=== PATIENT | male | born 1955 | race Caucasian/White ===

== ENCOUNTER 2021-04-27 14:45 | Emergency (ER) | payer OTHER ==
[~2021-04-27] VITALS: Ht 182.9 cm; Wt 62.6 kg
--- NOTE | 2021-04-27 14:45 | NUR ---
Dr Torres at the bedside for MSE.
[2021-04-27] MEDS ORDERED: IV NORMAL SALINE 1000 ML BAG IV ONE (15:00)
--- NOTE | 2021-04-27 15:00 | NUR ---
No information available about pt's current home medications. Pt and EMS were unable to provide information.
[2021-04-27 15:10] LABS: HEMATOCRIT 47.7 % (36.7-47.1); MEAN CORPUSCULAR HEMOGLOBIN 32.7 uug (23.8-33.4); MEAN CORPUSCULAR VOLUME 96.7 fL (73.0-96.2); PLATELET COUNT (AUTO) 316 K/uL (152-348)
[2021-04-27 15:14] LABS: CREATININE 0.8 mg/dL (0.6-1.3); POTASSIUM 3.9 mmol/L (3.5-5.1)
[2021-04-27 15:20] LABS: BILIRUBIN,DIRECT 0.2 mg/dL (0.0-0.2); TOTAL PROTEIN, SERUM 8.4 g/dL (6.4-8.2)
[2021-04-27 15:43] LABS: THYROID STIMULATING HORMONE 0.899 mIU/mL (0.358-3.740)
--- NOTE | 2021-04-27 15:58 | NUR ---
Dr Torres spoke to Dr Arzola for transfer to Neuro center.
[2021-04-27] MEDS ORDERED: levETIRAcetam IV 1,000 MG in IV DEXTROSE 5% 100 ML IV ONE (16:30)
[2021-04-27] MEDS ORDERED: DEXAMETHASONE SOD PHOSPHATE 4 MG INJ IV ONE (16:30)
[2021-04-27] MEDS ORDERED: DEXAMETHASONE SOD PHOSPHATE 10 MG INJ ONE (16:33)
[2021-04-27] MEDS ORDERED: levETIRAcetam 500 MG/5 ML VIAL IV ONE (16:33)
--- NOTE | 2021-04-27 17:23 | NUR ---
Pt's clinical faxed to [facility] rep, Hina @ [phone].
--- NOTE | 2021-04-27 18:06 | NUR ---
Patient is resting comfortably in bed with eyes closed, NAD noted.
--- NOTE | 2021-04-27 18:16 | NUR ---
Placed another call to Preston Ruosseau new douglas@ [phone], No new info available. Awaiting for bed assigment.
--- NOTE | 2021-04-27 19:05 | NUR ---
RECEIVED REPORT FROM SHIKHA. PT NOTED TO BE IN BED, NO SOB OR LABORED BREATHING. AFEBRILE. DENIES ANY PAIN/DISCOMFORT. A/O X3
--- NOTE | 2021-04-27 19:46 | NUR ---
ASSISTED PT TO USE URINAL
--- NOTE | 2021-04-27 20:42 | NUR ---
RICA FROM [facility] CALLED BACK WITH TRANSPORT ETA OF 2300 WITH ROCHELLE.
--- NOTE | 2021-04-27 20:52 | NUR ---
GAVE REPORT TO PADMA NURSE AT [place].
--- NOTE | 2021-04-27 21:56 | NUR ---
PT NOTED TO BE SOILED. PROPER PERINEAL CARE RENDERED. NOW NOTED TO BE CLEAN DRY AND COMFORTABLE. DENIES ANY PAIN/DISCOMFORT.
--- NOTE | 2021-04-27 23:24 | NUR ---
CALLED JO ANN FOR UPDATE ON ETA, NEW ETA IS 0000.
--- NOTE | 2021-04-28 02:09 | NUR ---
[facility] [address] AT BEDSIDE.
--- NOTE | 2021-04-28 02:18 | NUR ---
Patient Tranfers to outside Facility Physician: DR. COYLE AND DR. HERNÁNDEZ Location: [facility] NO CHANGES IN LOC. DENIES ANY PAIN/DISCOMFORT UPON DISCHARGE. NO SOB OR LABORED BREATHING. AFEBRILE. DENIES ANY CP/PRESSURE UPON TRANSFER.
== END 2021-04-28 02:20 | disposition short-term general hospital (02) ==
LOC: ER 14:49
DX: G93.9 Disorder of brain, unspecified (principal); G93.6 Cerebral edema; C44.722 Squamous cell carcinoma of skin of right lower limb, including hip; Z89.611 Acquired absence of right leg above knee; Z20.822 Contact with and (suspected) exposure to COVID-19
CPT/HCPCS: 36415; 70450; 71045; 80048; 80076; 83605; 84443; 84484; 85025; 87040 ×2; 87426; 93005; 96361; 96374; 96375; 99291; J1100; J1953; 70030-TC; A4663; J3490; J7030

== ENCOUNTER 2021-08-20 01:46 | Emergency (ER) | payer OTHER ==
[~2021-08-20] VITALS: Ht 172.7 cm; Wt 68.0 kg
[~2021-08-20 01:46] MED LIST: ATOR40TA PO; Lactose-Free Food/Fiber PO; MIRT-93 PO; ONDA4TAB5 PO; RIVA10TA PO; TRAZ-182 PO
--- NOTE | 2021-08-20 01:55 | NUR ---
Dr. Torres at bedside for MSE.
--- NOTE | 2021-08-20 02:29 | NUR ---
Pt out of ER for CT.
--- NOTE | 2021-08-20 02:51 | NUR ---
Pt back to ER from CT.
[2021-08-20 06:42] LABS: HEMATOCRIT 35.8 % (36.7-47.1); MEAN CORPUSCULAR HEMOGLOBIN 28.3 uug (23.8-33.4); MEAN CORPUSCULAR VOLUME 84.6 fL (73.0-96.2); PLATELET COUNT (AUTO) 463 K/uL (152-348)
[2021-08-20 07:04] LABS: BILIRUBIN,TOTAL 0.4 mg/dL (0.2-1.0); CREATININE 0.7 mg/dL (0.6-1.3); POTASSIUM 3.9 mmol/L (3.5-5.1); TOTAL PROTEIN, SERUM 7.2 g/dL (6.4-8.2)
--- NOTE | 2021-08-20 07:11 | NUR ---
Received pt. AAOx3. on NSR 62, 110/63, rr16. no c/o pain and temp of 98.2 Will continue to monitor.
--- NOTE | 2021-08-20 08:11 | NUR ---
Breakfast tray offered to pt.
--- NOTE | 2021-08-20 09:22 | NUR ---
A call to [facility] department to follow up on CT results. At this time Dr. Graves spoke with microbiological laboratory technician and as stated theyre following up on results.
[2021-08-20] MEDS ORDERED: IOHEXOL 300MG/ML 100 ML INFUS..BTL ONE (11:10)
[2021-08-20] MEDS ORDERED: SWABABLE VALVE TRANSFER SET EA MC ONE (11:11)
[2021-08-20] MEDS ORDERED: IV NORMAL SALINE 250 ML IV ONE (11:11)
--- NOTE | 2021-08-20 11:23 | NUR ---
RFA G22 started for CT with contrast patient taken down to ct at this time.
--- NOTE | 2021-08-20 11:45 | NUR ---
Patient back from CT
--- NOTE | 2021-08-20 11:59 | NUR ---
Patient refusing diaper changed at this time "I'm fine I'll let you know when I need your help"
--- NOTE | 2021-08-20 12:02 | NUR ---
HR 68, 103/74, RR18. 987.3 AAOx4.
--- NOTE | 2021-08-20 14:10 | NUR ---
A call to [facility] and spoke with Elizabeth Ceja from transfer center report given and a request to fax pt's face sheet and a negative covid test to .
--- NOTE | 2021-08-20 15:43 | NUR ---
Covid-19 negative results faxed to [facility].
--- NOTE | 2021-08-20 16:44 | NUR ---
A call from transfer center and at this time I was informed that pt. 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
--- NOTE | 2021-08-20 17:40 | NUR ---
A call to [facility] and report given to Troy Crocker. All system report utilized nurse provided with last set of vitals. 106/75, hr of 104, saturation of 98%, rr 18. Awaiting call with ETA.
--- NOTE | 2021-08-20 18:06 | NUR ---
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 and that [facility] has room ready.
--- NOTE | 2021-08-20 19:10 | NUR ---
Bedside report given to rn. Garcia. All systems covered.
--- NOTE | 2021-08-20 20:15 | NUR ---
[facility] to transport patient to [facility], report and documentation given to EMT.
== END 2021-08-20 20:25 | disposition short-term general hospital (02) ==
LOC: ER 01:49
DX: Z04.3 Encounter for examination and observation following other accident (principal); G93.9 Disorder of brain, unspecified; G93.6 Cerebral edema; E78.5 Hyperlipidemia, unspecified; Z89.611 Acquired absence of right leg above knee; Z79.01 Long term (current) use of anticoagulants; Z79.899 Other long term (current) drug therapy; R94.31 Abnormal electrocardiogram [ECG] [EKG]; Z20.822 Contact with and (suspected) exposure to COVID-19; N40.0 Benign prostatic hyperplasia without lower urinary tract symptoms; Z85.828 Personal history of other malignant neoplasm of skin
CPT/HCPCS: 36415; 70450; 70460; 72192; 80053; 82550; 84484; 85025; 87426; 93005; 99285; Q9967; A4663

== ENCOUNTER 2021-11-16 22:52 | Inpatient (IN) | payer MEDICARE, OTHER ==
[~2021-11-16] VITALS: Ht 170.2 cm; Wt 61.2 kg
[~2021-11-16 22:52] MED LIST changes: -Lactose-Free Food/Fiber PO
--- NOTE | 2021-11-16 23:40 | NUR ---
Dr Esteban at bedside MSE in progress
[2021-11-16] MEDS ORDERED: IV NORMAL SALINE 500 ML BAG IV ONE (23:45)
[2021-11-17 00:02] LABS: HEMATOCRIT 33.3 % (36.7-47.1); MEAN CORPUSCULAR HEMOGLOBIN 28.8 uug (23.8-33.4); PLATELET COUNT (AUTO) 520 K/uL (152-348)
[2021-11-17 00:07] LABS: CARBON DIOXIDE 31 mmol/L (21-32); CHLORIDE 96 mmol/L (98-107); CREATININE 0.7 mg/dL (0.6-1.3); GLUCOSE 101 mg/dL (74-106); POTASSIUM 3.5 mmol/L (3.5-5.1); UREA NITROGEN, BLOOD 14 mg/dL (7-18)
[2021-11-17 00:16] LABS: ALANINE AMINOTRANSFERASE 19 U/L (16-63); ALKALINE PHOSPHATASE 106 U/L (50-136); ASPARTATE AMINOTRANSFERASE 14 U/L (15-37); BILIRUBIN,DIRECT 0.2 mg/dL (0.0-0.2); BILIRUBIN,TOTAL 0.6 mg/dL (0.2-1.0); TOTAL PROTEIN, SERUM 7.9 g/dL (6.4-8.2)
[2021-11-17 00:29] LABS: *BILIRUBIN,URIN NEGATIVE (NEGATIVE); *BLOOD, URINE NEGATIVE (NEGATIVE); *COLOR,URINE YELLOW (YELLOW); *KETONES,URINE TRACE (NEGATIVE); LEUKOCYTE ESTERASE ,URINE NEGATIVE (NEGATIVE); NITRITE, URINE NEGATIVE (NEGATIVE); UGLUCOSE NEGATIVE (NEGATIVE)
[2021-11-17 00:49] LABS: *CLARITY,URINE CLEAR (CLEAR)
[2021-11-17] MEDS ORDERED: LEVE500T20 PO (02:32)
[2021-11-17] MEDS ORDERED: TRAZ-182 PO (02:32)
[2021-11-17] MEDS ORDERED: HYDR4TAB4 PO (02:32)
[2021-11-17] MEDS ORDERED: FERR325T28 PO (02:32)
[2021-11-17] MEDS ORDERED: MULT-213 PO (02:32)
[2021-11-17] MEDS ORDERED: MIRT-93 PO (02:32)
[2021-11-17] MEDS ORDERED: ATOR40TA PO (02:32)
[2021-11-17] MEDS ORDERED: ACET-2154 PO (02:32)
[2021-11-17] MEDS ORDERED: REMEDY ESSENTIAL ZINC PASTE 113 GM TP PRN (03:00)
[2021-11-17] MEDS ORDERED: MAGNESIUM HYDROXIDE 30 ML LIQUID UDC PO PRN (03:00)
[2021-11-17] MEDS ORDERED: ACETAMINOPHEN 325 MG TABLET PO PRN (03:00)
[2021-11-17] MEDS ORDERED: ONDANSETRON 4 MG/2 ML VIAL IV PRN (03:00)
[2021-11-17] MEDS ORDERED: ENOXAPARIN SODIUM 40 MG/0.4 ML DISP.SYRIN SQ SCH (03:00)
[2021-11-17] MEDS ORDERED: CEFTRIAXONE 1 G in IV DEXTROSE 5% 50 ML IV SCH (03:00)
--- NOTE | 2021-11-17 03:00 | NUR ---
Patient has been accepted by Patsy Miller NP
--- NOTE | 2021-11-17 03:14 | NUR ---
Spoke with [facility] charge machine operator nurse. no beds available. Patient will be admitted to Med/Surg AM shift
[2021-11-17] MEDS ORDERED: ENOXAPARIN SODIUM 40 MG/0.4 ML DISP.SYRIN SQ ONE (03:48)
[2021-11-17] MEDS ORDERED: CEFTRIAXONE /D5W 50ML IVPB **ER PYXIS IV ONE (03:48)
--- NOTE | 2021-11-17 06:49 | NUR ---
Change of shift report to Tiana LIMA
--- NOTE | 2021-11-17 06:54 | NUR ---
BEDSIDE REPORT OBTAINED FROM OUT GOING RN. PATIENT A,A AND O X 4.PATIENT STATED THAT HE IS IN PAIN AND DOES NOT WANT TO BE IN PAIN ANYMORE" HE FURTHER STATED THAT HE HAS BEEN IN PAIN FOR OVER 8 YEARS. HE ALSO STATED THAT I CANNOT HELP TREAT HIS PAIN IN HIS RIGHT SHOULDER AND AND LEGS. ASSISTED IN REPOSITIONING FOR COMFORT. RIGHT PARIETAL S CELL CANCER LESION TO SCALP/ RIGHT FLANK DSG DRAINING PURULENT DRAINAGE AND FOUL ODOR NOTED. AM LABS BEING DRAWN AND RESULTS PENDING.
[2021-11-17 07:14] LABS: HEMATOCRIT 30.1 % (36.7-47.1); MEAN CORPUSCULAR HEMOGLOBIN 29.2 uug (23.8-33.4); MEAN CORPUSCULAR VOLUME 87.6 fL (73.0-96.2); PLATELET COUNT (AUTO) 471 K/uL (152-348)
[2021-11-17 07:25] LABS: CREATININE 0.7 mg/dL (0.6-1.3); POTASSIUM 3.4 mmol/L (3.5-5.1)
[2021-11-17 07:31] LABS: BILIRUBIN,TOTAL 0.3 mg/dL (0.2-1.0); MAGNESIUM 1.5 mg/dL (1.8-2.4); PHOSPHOROUS 3.1 mg/dL (2.5-4.9); TOTAL PROTEIN, SERUM 6.8 g/dL (6.4-8.2)
[2021-11-17 07:38] LABS: THYROID STIMULATING HORMONE 1.439 mIU/mL (0.358-3.740)
[2021-11-17] MEDS ORDERED: PANTOPRAZOLE SODIUM 40 MG VIAL IV SCH (09:00)
[2021-11-17] MEDS ORDERED: ACETAMINOPHEN 325 MG TABLET ONE (09:11)
[2021-11-17] MEDS ORDERED: PANTOPRAZOLE SODIUM 40 MG TABLET.DR PO ONE (09:12)
[2021-11-17] MEDS: IV NS 1000 ML 1,000 ML IV PRN (09:20)
[2021-11-17] MEDS ORDERED: PANTOPRAZOLE SODIUM 40 MG VIAL ONE (09:22)
[2021-11-17 12:00] VITALS: BP 105/69
--- NOTE | 2021-11-17 12:00 | NUR ---
LAB RESULTS REVIEWED, POTASSIUM 3.4 AND MAG 1.5 ABNORMAL RESULTS NOTED, MD DID NOT ROUND ON PATIENTS EPIC SERVICE ONCALL PAGED.
--- NOTE | 2021-11-17 13:30 | NUR ---
ABN LAB RESULTS CALLED TO LISA GUERRA AND NOTIFIED THAT THE PATIENT'S IS NOT GETTING RELIEF FROM TYLENOL. NEW ORDERS NOTED.
[2021-11-17] MEDS ORDERED: POTASSIUM CHLORIDE 10 MEQ TAB.PRT.SR PO ONE (14:15)
[2021-11-17] MEDS ORDERED: POTASSIUM CHLORIDE 10 MEQ TAB.PRT.SR ONE (14:33)
[2021-11-17] MEDS ORDERED: MAGNESIUM SULFATE/D5W 200 ML ONE (14:33)
[2021-11-17] MEDS ORDERED: HYDROCODONE/APAP 10-325 MG TABLET ONE (14:34)
[2021-11-17] MEDS: HYDROCODONE/APAP 10-325 MG TABLET PO PRN (14:36)
[2021-11-17] MEDS: MAGNESIUM SULFATE/D5W 100 ML IV SCH ×2 (14:36→15:39)
[2021-11-17 16:00] VITALS: BP 103/55
[2021-11-17] MEDS ORDERED: ACETAMINOPHEN 325 MG TABLET-SA PATIENTS-PAIN ONLY PO PRN (16:00)
--- NOTE | 2021-11-17 16:00 | NUR ---
MARI Ring IN TO SEE PATIENT NEW ORDERS NOTED AND WOUND CX AND ANTIBIOTIC VANCOMYCIN AND KEPPRA ORDERED. NO SEIZURE ACTIVITIES NOTED ON SHIFT AND BED PADDED.
[2021-11-17] MEDS ORDERED: levETIRAcetam 250 MG TABLET ONE (17:06)
[2021-11-17] MEDS: levETIRAcetam 500 MG TABLET PO SCH (17:10)
[2021-11-17] MEDS ORDERED: VANCOMYCIN IV 1,250 MG in IV DEXTROSE 5% 250 ML IV ONE (18:00)
--- NOTE | 2021-11-17 18:00 | NUR ---
POSITIVE FOR MRSA NARES, NOTIFIED MARI Simmons NP AND NEW ORDER NOTED FOR BACTROBAN TO NARES.
--- NOTE | 2021-11-17 19:23 | NUR ---
REPORT GIVEN TO INCOMING RN. NO SEIZURE ACTIVITIES ON SHIFT.
[2021-11-17] MEDS ORDERED: ATORVASTATIN 40 MG TABLET ONE (20:04)
[2021-11-17] MEDS ORDERED: TRAZODONE 50 MG TABLET ONE (20:04)
[2021-11-17] MEDS ORDERED: MIRTAZAPINE 15 MG TABLET ONE (20:05)
[2021-11-17] MEDS: ATORVASTATIN 40 MG TABLET PO SCH (20:06)
[2021-11-17] MEDS: TRAZODONE 50 MG TABLET PO SCH (20:06)
[2021-11-17] MEDS: MUPIROCIN 2% OINT 22 GM TUBE NS SCH (20:06)
[2021-11-17] MEDS: MIRTAZAPINE 15 MG TABLET PO SCH (20:06)
--- NOTE | 2021-11-17 20:16 | NUR ---
DUE PO MEDICATION GIVEN PATIENT TOLERATED MEDICATION WITH WATER . PATIENT AWAKE ,ALERT AND ORIENTED NO RESPIRATORY DISTRESS NOTED ,BREATHING EVEN AND UNLABORED ,ON ROOM AIR . PATIENT DENEIS ANY PAIN .
--- NOTE | 2021-11-17 21:30 | NUR ---
PATIENT IN BED SLEEPING NO S/S OF PAIN .STILL WAITING FOR MEDICAL SURGICAL ROOM .
--- NOTE | 2021-11-17 23:36 | NUR ---
REPORT GIVEN TO GEOFFREY LIMA PATIENT GOING TO ROOM 316 M/S.
[2021-11-18 00:25] VITALS: BP 100/66
--- NOTE | 2021-11-18 00:25 | NUR ---
Patient taken upstairs to MED SURG unit room 316.
--- NOTE | 2021-11-18 00:30 | NUR ---
Nsg: Admitted patient from er via bed to ms room 316 for Dx: failure for thrive. patient is a/o x3 with period of forgetful. 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 c/o right hip pain prn po pain meds give. ivf ns @ 50cc/hrs running well. ivhl on right fore arm is patent. incontinent of b+b. patient has wound on head and right flunk.left heal redness. coccyx are with redness. assisted in bed. call light w/in reach.
[2021-11-18] MEDS: HYDROCODONE/APAP 10-325 MG TABLET PO PRN ×3 (01:42→09:44)
[2021-11-18] MEDS: VANCOMYCIN IV 1,000 MG in IV DEXTROSE 5% 250 ML IV SCH ×3 (02:05→18:09)
[2021-11-18] MEDS: CEFTRIAXONE 1 G in IV DEXTROSE 5% 50 ML IV SCH (03:58)
[2021-11-18 04:00] VITALS: BP 99/63
--- NOTE | 2021-11-18 05:05 | NUR ---
Nsg: Remain calm and cooperative. pain meds given and effective. ivf ruining well. no acute distress noted. call light w/in reach. continue plan of care.
[2021-11-18 07:28] LABS: MEAN CORPUSCULAR HEMOGLOBIN 29.4 uug (23.8-33.4); MEAN CORPUSCULAR VOLUME 87.3 fL (73.0-96.2); PLATELET COUNT (AUTO) 481 K/uL (152-348)
[2021-11-18 07:48] LABS: CARBON DIOXIDE 30 mmol/L (21-32); CHLORIDE 99 mmol/L (98-107); CREATININE 0.4 mg/dL (0.6-1.3); GLUCOSE 91 mg/dL (74-106); MAGNESIUM 1.6 mg/dL (1.8-2.4); POTASSIUM 3.1 mmol/L (3.5-5.1); UREA NITROGEN, BLOOD 6 mg/dL (7-18)
[2021-11-18] MEDS: FERROUS SULFATE 325 MG TABEC PO SCH (09:12)
[2021-11-18] MEDS: levETIRAcetam 500 MG TABLET PO SCH ×2 (09:12→17:37)
[2021-11-18] MEDS: MULTIVIT, IRON, MIN NO. 8, FA TABLET PO SCH (09:12)
[2021-11-18] MEDS: ENOXAPARIN SODIUM 40 MG/0.4 ML DISP.SYRIN SQ SCH (09:13)
[2021-11-18] MEDS ORDERED: POTASSIUM CHLORIDE 20 MEQ TAB.PRT.SR PO ONE (09:15)
[2021-11-18] MEDS: MAGNESIUM SULFATE/D5W 100 ML IV SCH ×2 (09:16→10:57)
[2021-11-18] MEDS: MUPIROCIN 2% OINT 22 GM TUBE NS SCH ×2 (09:17→21:00)
[2021-11-18] MEDS: PANTOPRAZOLE SODIUM 40 MG TABLET.DR PO SCH (09:35)
[2021-11-18] MEDS: HYDROMORPHONE HCL 2 MG TABLET PO PRN ×2 (09:49→13:37)
[2021-11-18 11:52] VITALS: BP 94/66
[2021-11-18 16:00] VITALS: BP 103/65
[2021-11-18] MEDS: IV NS 1000 ML 1,000 ML IV PRN (18:25)
[2021-11-18 20:15] VITALS: BP 100/64
[2021-11-18] MEDS: ATORVASTATIN 40 MG TABLET PO SCH (23:15)
[2021-11-18] MEDS: TRAZODONE 50 MG TABLET PO SCH (23:16)
[2021-11-18] MEDS: MIRTAZAPINE 15 MG TABLET PO SCH (23:18)
[2021-11-19] MEDS: VANCOMYCIN IV 1,000 MG in IV DEXTROSE 5% 250 ML IV SCH ×3 (03:07→17:35)
[2021-11-19 04:00] VITALS: BP 105/60
[2021-11-19] MEDS: CEFTRIAXONE 1 G in IV DEXTROSE 5% 50 ML IV SCH (04:20)
[2021-11-19] MEDS: PANTOPRAZOLE SODIUM 40 MG TABLET.DR PO SCH (06:39)
[2021-11-19 06:50] LABS: HEMATOCRIT 28.7 % (36.7-47.1); MEAN CORPUSCULAR HEMOGLOBIN 29.2 uug (23.8-33.4); MEAN CORPUSCULAR VOLUME 88.6 fL (73.0-96.2); PLATELET COUNT (AUTO) 489 K/uL (152-348)
[2021-11-19 06:58] LABS: CARBON DIOXIDE 30 mmol/L (21-32); CHLORIDE 99 mmol/L (98-107); CREATININE 0.6 mg/dL (0.6-1.3); GLUCOSE 105 mg/dL (74-106); POTASSIUM 3.3 mmol/L (3.5-5.1); UREA NITROGEN, BLOOD 4 mg/dL (7-18)
[2021-11-19] MEDS: ENOXAPARIN SODIUM 40 MG/0.4 ML DISP.SYRIN SQ SCH (09:02)
[2021-11-19] MEDS: MUPIROCIN 2% OINT 22 GM TUBE NS SCH ×2 (09:02→20:13)
[2021-11-19] MEDS: FERROUS SULFATE 325 MG TABEC PO SCH (09:03)
[2021-11-19] MEDS: levETIRAcetam 500 MG TABLET PO SCH ×2 (09:03→17:35)
[2021-11-19] MEDS: HYDROMORPHONE HCL 2 MG TABLET PO PRN (09:03)
[2021-11-19] MEDS: MULTIVIT, IRON, MIN NO. 8, FA TABLET PO SCH (09:04)
[2021-11-19] MEDS ORDERED: POTASSIUM CHLORIDE 20 MEQ POWDER PACKET NG SCH (09:30)
[2021-11-19 11:40] VITALS: BP 103/67
[2021-11-19] MEDS: HYDROCODONE/APAP 10-325 MG TABLET PO PRN ×2 (13:13→22:11)
[2021-11-19 15:42] VITALS: BP 102/73
[2021-11-19] MEDS: PROTEIN SUPPLEMENT (PROSTAT) 30 ML LIQUID PO SCH (17:35)
--- NOTE | 2021-11-19 19:30 | NUR ---
Received pt awake, alert and orientedx3. Pt in no acute distress. Iv intact. Safety and comfort provided. Will continue to monitor.
[2021-11-19 20:00] VITALS: BP 127/79
[2021-11-19] MEDS: ATORVASTATIN 40 MG TABLET PO SCH (20:13)
[2021-11-19] MEDS: TRAZODONE 50 MG TABLET PO SCH (20:14)
[2021-11-19] MEDS: MIRTAZAPINE 15 MG TABLET PO SCH (20:14)
[2021-11-19] MEDS: IV NS 1000 ML 1,000 ML IV PRN (20:16)
--- NOTE | 2021-11-19 23:05 | NUR ---
Pt given [place] at 2211H for 9/10 pain scale . Pt tolerated it well. After 30 minutes Pt stated he felt better. Will continue to monitor.
[2021-11-20] MEDS: VANCOMYCIN IV 1,000 MG in IV DEXTROSE 5% 250 ML IV SCH ×2 (01:35→17:55)
[2021-11-20] MEDS: CEFTRIAXONE 1 G in IV DEXTROSE 5% 50 ML IV SCH (03:27)
[2021-11-20 04:00] VITALS: BP 125/63
--- NOTE | 2021-11-20 06:12 | NUR ---
Pt slept intermittently. Pt in no acute distress. Pt iv intact. Prescribed medication given and pt tolerated it well. Dressing change. Pt turned and repositioned. Safety and comfort provided.Vital signs within normal limit. All needs are met. Will endorse to incoming nurse for continuity of care.
[2021-11-20] MEDS: PANTOPRAZOLE SODIUM 40 MG TABLET.DR PO SCH (06:31)
[2021-11-20 06:36] LABS: CREATININE 0.7 mg/dL (0.6-1.3); POTASSIUM 3.5 mmol/L (3.5-5.1)
[2021-11-20 07:18] LABS: HEMATOCRIT 30.4 % (36.7-47.1); MEAN CORPUSCULAR HEMOGLOBIN 28.4 uug (23.8-33.4); MEAN CORPUSCULAR VOLUME 87.4 fL (73.0-96.2); PLATELET COUNT (AUTO) 510 K/uL (152-348)
[2021-11-20] MEDS: FERROUS SULFATE 325 MG TABEC PO SCH (08:46)
[2021-11-20] MEDS: levETIRAcetam 500 MG TABLET PO SCH ×2 (08:46→17:55)
[2021-11-20] MEDS: MULTIVIT, IRON, MIN NO. 8, FA TABLET PO SCH (08:46)
[2021-11-20] MEDS: ENOXAPARIN SODIUM 40 MG/0.4 ML DISP.SYRIN SQ SCH (08:47)
[2021-11-20] MEDS: PROTEIN SUPPLEMENT (PROSTAT) 30 ML LIQUID PO SCH ×2 (08:52→17:56)
[2021-11-20] MEDS: MUPIROCIN 2% OINT 22 GM TUBE NS SCH ×2 (08:52→20:27)
--- NOTE | 2021-11-20 10:26 | NUR ---
VANCO LEVEL IS 22.4 WITH ORDER TO DISCONTINUE VANCO PER THE PHARMACIST AND NOTED
[2021-11-20 12:40] VITALS: BP 103/66
--- NOTE | 2021-11-20 14:00 | NUR ---
PATIENT IS CONFUSED AND DISORIENTED AT THIS TIME WANTING TO GO TO THE YARD UNAWARE OF HIS DESTINATION REFUSING TO EAT OR DRINK BED ALARM IS IN USE ONE ON ONE ORIENTATION IS ONGOING TO REDUCE CONFUSION WILL CONTINUE TO OBSERVE AND PROVIDE SAFETY.
--- NOTE | 2021-11-20 15:50 | NUR ---
IAN WELLNESS SPA MANAGER HERE AND SEEN PATIENT WITH NEW ORDERS PATIENT HAS AN ORDER FOR CT AND MRI AND HE IS CONFUSED WEAK AND UNABLE TO OBTAIN CONSCENT FROM HIM SO I CALLED PATIENTS SISTER GUERA AND LEFT HIM A MESSAGE AWAITING FOR RETURN CALL.
[2021-11-20 16:27] LABS: IRON, SERUM 12 ug/dL (50-175)
[2021-11-20 16:30] LABS: FERRITIN 187 ng/mL (26-388); LACTATE DEHYDROGENASE 113 U/L (85-227)
[2021-11-20 16:38] VITALS: BP 122/59
--- NOTE | 2021-11-20 17:14 | NUR ---
PATIENT TAKEN TO RADIOLOGY BY BED FOR CT HEAD ORDERED AND NOW BACK INTO HIS ROOM.
--- NOTE | 2021-11-20 17:30 | NUR ---
PATIENTS SISTER RETURNED CALL AND OKAYED ALL THE TESTS ORDERED BY IAN.PATIENT WILL NEED A MIDLINE DUE TO POOR VEINOUS ACCESS MD AWARE WITH NEW ORDER AND NOTED.
[2021-11-20] MEDS: DEXAMETHASONE SOD PHOSPHATE 4 MG INJ IV SCH ×2 (17:55→21:12)
[2021-11-20 18:29] LABS: *OCCULT BLOOD STOOL NEGATIVE (NEGATIVE)
[2021-11-20 20:00] VITALS: BP 109/62
[2021-11-20] MEDS: TRAZODONE 50 MG TABLET PO SCH (20:23)
[2021-11-20] MEDS: ATORVASTATIN 40 MG TABLET PO SCH (20:23)
[2021-11-20] MEDS: MIRTAZAPINE 15 MG TABLET PO SCH (20:23)
[2021-11-21] MEDS: IV NS 1000 ML 1,000 ML IV PRN (01:50)
[2021-11-21] MEDS: DEXAMETHASONE SOD PHOSPHATE 4 MG INJ IV SCH ×4 (03:04→23:02)
[2021-11-21] MEDS: CEFTRIAXONE 1 G in IV DEXTROSE 5% 50 ML IV SCH (03:06)
[2021-11-21 04:00] VITALS: BP 108/64
[2021-11-21] MEDS: VANCOMYCIN IV 1,000 MG in IV DEXTROSE 5% 250 ML IV SCH (05:11)
[2021-11-21] MEDS: PANTOPRAZOLE SODIUM 40 MG TABLET.DR PO SCH (06:12)
--- NOTE | 2021-11-21 06:43 | NUR ---
MRI APPROVED BY DR. JEAN,ASSEMBLY REPAIRER NOTIFIED VIA TEXT MESSAGE.
[2021-11-21 07:18] LABS: HEMATOCRIT 32.1 % (36.7-47.1); MEAN CORPUSCULAR HEMOGLOBIN 28.9 uug (23.8-33.4); MEAN CORPUSCULAR VOLUME 86.9 fL (73.0-96.2); PLATELET COUNT (AUTO) 539 K/uL (152-348)
[2021-11-21 07:24] LABS: CREATININE 0.8 mg/dL (0.6-1.3); POTASSIUM 4.2 mmol/L (3.5-5.1)
--- NOTE | 2021-11-21 08:01 | NUR ---
Sleeping, appears comfortable. IVF infusing.
[2021-11-21] MEDS ORDERED: SWABABLE VALVE TRANSFER SET EA MC ONE (09:09)
[2021-11-21] MEDS ORDERED: IV NORMAL SALINE 250 ML IV ONE (09:09)
[2021-11-21] MEDS ORDERED: IOHEXOL 350 100 ML INFUS..BTL ONE (09:09)
--- NOTE | 2021-11-21 10:00 | NUR ---
CT chest/abdomen done. Midline placed to LUE. Bed bath given. Repositioned comfortably.
[2021-11-21 10:06] LABS: *IMMUNOGLOBULIN G, SERUM 1072 mg/dL (603-1613); IMMUNOGLOBULIN M, SERUM 43 mg/dL (20-172)
[2021-11-21] MEDS: MULTIVIT, IRON, MIN NO. 8, FA TABLET PO SCH (10:09)
[2021-11-21] MEDS: FERROUS SULFATE 325 MG TABEC PO SCH ×2 (10:09→20:14)
[2021-11-21] MEDS: levETIRAcetam 500 MG TABLET PO SCH ×2 (10:09→16:44)
[2021-11-21] MEDS: PROTEIN SUPPLEMENT (PROSTAT) 30 ML LIQUID PO SCH ×2 (10:10→16:45)
[2021-11-21] MEDS: MUPIROCIN 2% OINT 22 GM TUBE NS SCH ×2 (10:11→20:21)
[2021-11-21 12:00] VITALS: BP 96/60
--- NOTE | 2021-11-21 12:00 | NUR ---
To [facility] for MRI brain, L spine, T spine.
--- NOTE | 2021-11-21 13:11 | NUR ---
WOUND CARE CONSULT: PT IS OFF UNIT/OFF CAMPUS AT THIS TIME. DR OBREGON NOTIFIED OF SURGICAL CONSULT REQUEST. IN AGREEMENT WITH PLAN OF CARE.
[2021-11-21] MEDS ORDERED: GADOTERATE MEGLUMINE 10 MMOL/20 ML VIAL IV ONE (15:54)
[2021-11-21 16:00] VITALS: BP 100/63
[2021-11-21] MEDS: HYDROCODONE/APAP 10-325 MG TABLET PO PRN (16:45)
--- NOTE | 2021-11-21 17:11 | NUR ---
Back from [facility] MRI done. Reports of pain, [place] po given. Repositioned comfortably
[2021-11-21 20:00] VITALS: BP 98/52
[2021-11-21] MEDS: VANCOMYCIN IV 750 MG in IV DEXTROSE 5% 250 ML IV SCH (20:03)
[2021-11-21] MEDS: TRAZODONE 50 MG TABLET PO SCH (20:14)
[2021-11-21] MEDS: ATORVASTATIN 40 MG TABLET PO SCH (20:14)
[2021-11-21] MEDS: MIRTAZAPINE 15 MG TABLET PO SCH (20:14)
[2021-11-22] MEDS: IV NS 1000 ML 1,000 ML IV PRN ×2 (01:11→16:04)
[2021-11-22] MEDS: HYDROMORPHONE HCL 2 MG TABLET PO PRN ×4 (01:28→22:35)
[2021-11-22] MEDS: CEFTRIAXONE 1 G in IV DEXTROSE 5% 50 ML IV SCH (03:06)
[2021-11-22] MEDS: DEXAMETHASONE SOD PHOSPHATE 4 MG INJ IV SCH ×4 (03:08→22:36)
[2021-11-22 04:00] VITALS: BP 103/62
[2021-11-22 06:06] LABS: A/G RATIO 0.7 (0.7-1.7); ALBUMIN 2.5 g/dL (2.9-4.4); ALPHA-1-GLOBULIN 0.4 g/dL (0.0-0.4); BETA GLOBULIN 1.1 g/dL (0.7-1.3); GLOBULIN, TOTAL 3.5 g/dL (2.2-3.9); M-SPIKE Not Observed g/dL (Not Observed)
[2021-11-22] MEDS: PANTOPRAZOLE SODIUM 40 MG TABLET.DR PO SCH (06:11)
[2021-11-22] MEDS: levETIRAcetam 500 MG TABLET PO SCH ×2 (08:52→16:42)
[2021-11-22] MEDS: MULTIVIT, IRON, MIN NO. 8, FA TABLET PO SCH (08:52)
[2021-11-22] MEDS: FERROUS SULFATE 325 MG TABEC PO SCH ×2 (08:52→22:19)
[2021-11-22] MEDS: MUPIROCIN 2% OINT 22 GM TUBE NS SCH ×2 (08:53→22:19)
[2021-11-22] MEDS: PROTEIN SUPPLEMENT (PROSTAT) 30 ML LIQUID PO SCH ×2 (09:00→17:15)
[2021-11-22] MEDS: VANCOMYCIN IV 750 MG in IV DEXTROSE 5% 250 ML IV SCH (10:13)
[2021-11-22 11:52] VITALS: BP 100/56
[2021-11-22 15:55] VITALS: BP 93/53
[2021-11-22] MEDS: ENOXAPARIN SODIUM 40 MG/0.4 ML DISP.SYRIN SQ SCH (17:22)
[2021-11-22 20:00] VITALS: BP 117/69
[2021-11-22] MEDS: TRAZODONE 50 MG TABLET PO SCH (22:19)
[2021-11-22] MEDS: ATORVASTATIN 40 MG TABLET PO SCH (22:20)
[2021-11-22] MEDS: MIRTAZAPINE 15 MG TABLET PO SCH (22:20)
[2021-11-23] MEDS: HYDROMORPHONE HCL 2 MG TABLET PO PRN (02:08)
[2021-11-23] MEDS: DEXAMETHASONE SOD PHOSPHATE 4 MG INJ IV SCH (04:21)
[2021-11-23] MEDS: CEFTRIAXONE 1 G in IV DEXTROSE 5% 50 ML IV SCH (04:21)
[2021-11-23] MEDS: HYDROCODONE/APAP 10-325 MG TABLET PO PRN (04:26)
[2021-11-23 04:36] VITALS: BP 90/53
--- NOTE | 2021-11-23 04:54 | NUR ---
[PT C/O PAIN FROM HEAD. AND GAVE DILAUDID TWICE NOW THE CHECKED 0400 VITALS B/P IS LOW WILL NOT GIVE DILAUDID 4MG BUT WILL GIVE NORCO PT IS AWARE. BUT WILL GIVE PAIN MEDICATION NOT STRONG. PT MONITORED HOURLY AND WILL ENDORSE TO AM NURSE.
[2021-11-23] MEDS ORDERED: SILVER NITRATE APPLICATOR STICK EACH TP ONE (06:00)
[2021-11-23] MEDS: PANTOPRAZOLE SODIUM 40 MG TABLET.DR PO SCH (06:56)
[2021-11-23] MEDS: PROTEIN SUPPLEMENT (PROSTAT) 30 ML LIQUID PO SCH (09:38)
[2021-11-23] MEDS: MULTIVIT, IRON, MIN NO. 8, FA TABLET PO SCH (09:38)
[2021-11-23] MEDS: MUPIROCIN 2% OINT 22 GM TUBE NS SCH (09:38)
[2021-11-23] MEDS: levETIRAcetam 500 MG TABLET PO SCH (09:38)
[2021-11-23] MEDS: FERROUS SULFATE 325 MG TABEC PO SCH (09:38)
[2021-11-23] MEDS: MIDODRINE HCL 5 MG TABLET PO SCH ×2 (09:47→14:23)
[2021-11-23] MEDS: ENOXAPARIN SODIUM 40 MG/0.4 ML DISP.SYRIN SQ SCH (09:48)
[2021-11-23 12:00] VITALS: BP 171/61
[2021-11-23] MEDS ORDERED: AMOXIcillin 500 MG CAPSULE PO SCH (12:00)
[2021-11-23] MEDS ORDERED: IV NORMAL SALINE 500 ML IV ONE (12:00)
[2021-11-23] MEDS ORDERED: HYDR-3980 PO (13:50)
[2021-11-23] MEDS ORDERED: SILVER NITRATE APPLICATOR TP (13:50)
[2021-11-23] MEDS ORDERED: AMOX500C2 PO (13:50)
[2021-11-23] MEDS ORDERED: HYDR2TAB7 PO (13:50)
[2021-11-23] MEDS ORDERED: PANT40TA49 PO (13:50)
[2021-11-23] MEDS ORDERED: DOCU-141 PO (13:50)
[2021-11-23] MEDS ORDERED: MIDO5TAB4 PO (13:50)
[2021-11-23] MEDS ORDERED: MAGN296S70 PO (13:50)
[2021-11-23] MEDS ORDERED: MAGN400O6 PO (13:50)
[2021-11-23] MEDS ORDERED: DEXA4TAB2 PO (13:50)
[2021-11-23] MEDS ORDERED: DEXAMETHASONE 4 MG TABLET PO SCH (14:00)
[2021-11-23 16:00] VITALS: BP 96/54
--- NOTE | 2021-11-23 17:06 | NUR ---
Pt is being discharged to [facility] and rehab by [facility] ambulance. Report called and given to Yair LIMA. No personal belongings at bedside. All discharge information given to pt. No signs of acute distress. Pt refused to have photo taken of wounds. IV and ID bands removed.
[2021-11-24] MEDS ORDERED: LIDOCAINE 1%-EPI 1:100,000 20 ML VIAL IJ ONE (06:00)
[2021-11-24] MEDS ORDERED: SILVER NITRATE APPLICATOR STICK EACH TP ONE (09:00)
== END 2021-11-23 17:10 | DRG 871 ==
LOC: ER 22:57 → TRANSITION 11-17 03:07 → MEDSURG3 11-17 23:53
PROVIDERS: ADMIT Nurse Practitioner Acute Care; ATTEND Internal Medicine
PROC: 05H633Z Insertion of Infusion Device into Left Subclavian Vein, Percutaneous Approach (ICD-10-PCS; principal; 2021-11-21)
PROC: B547ZZA Ultrasonography of Left Subclavian Vein, Guidance (ICD-10-PCS; 2021-11-21)
DX: A41.9 Sepsis, unspecified organism (principal); E43 Unspecified severe protein-calorie malnutrition; C79.31 Secondary malignant neoplasm of brain; E44.0 Moderate protein-calorie malnutrition; D68.69 Other thrombophilia; C77.9 Secondary and unspecified malignant neoplasm of lymph node, unspecified; C78.7 Secondary malignant neoplasm of liver and intrahepatic bile duct; C79.89 Secondary malignant neoplasm of other specified sites; R62.7 Adult failure to thrive; C43.4 Malignant melanoma of scalp and neck; D72.829 Elevated white blood cell count, unspecified; E78.5 Hyperlipidemia, unspecified; E88.09 Other disorders of plasma-protein metabolism, not elsewhere classified; Z20.822 Contact with and (suspected) exposure to COVID-19; D75.839 Thrombocytosis, unspecified; E61.1 Iron deficiency; G40.909 Epilepsy, unspecified, not intractable, without status epilepticus; Z89.611 Acquired absence of right leg above knee; Z74.09 Other reduced mobility; Z22.322 Carrier or suspected carrier of Methicillin resistant Staphylococcus aureus; R53.1 Weakness; Z68.21 Body mass index [BMI] 21.0-21.9, adult; Z79.899 Other long term (current) drug therapy; B95.62 Methicillin resistant Staphylococcus aureus infection as the cause of diseases classified elsewhere; D63.8 Anemia in other chronic diseases classified elsewhere; E87.6 Hypokalemia
CPT/HCPCS: 36415; 70030-TC; 70450; 70553; 71045; 71260; 72148; 82784; 83550; 83615; 83735; 84100; 84155; 84165; 84443; 84484; 85025; 86334; 87040; 87070; 87077; 87086; 93005; A6209; A6213; A9575; C9113; G0378; J0696; J1100; J1650; J3370; J3475; J3490; J7040; J7050; J8540; Q9967

== ENCOUNTER 2021-12-12 04:56 | Inpatient (IN) | payer MEDICARE, OTHER ==
[~2021-12-12] VITALS: Ht 182.9 cm; Wt 53.1 kg
[~2021-12-12 04:56] MED LIST changes: +ACET-2154 PO; +AMOX500C2 PO; -ATOR40TA PO; +DEXA4TAB2 PO; +DOCU-141 PO; +FERR325T28 PO; +HYDR-3980 PO; +HYDR2TAB7 PO; +LEVE500T20 PO; +MAGN296S70 PO; +MAGN400O6 PO; +MIDO5TAB4 PO; +MULT-213 PO; -ONDA4TAB5 PO; +PANT40TA49 PO; -RIVA10TA PO; +SILVER NITRATE APPLICATOR TP
[2021-12-12] MEDS ORDERED: HYDR2TAB4 PO (06:34)
[2021-12-12] MEDS ORDERED: GABA-532 PO (06:34)
[2021-12-12] MEDS ORDERED: PANT40TA49 PO (06:34)
[2021-12-12] MEDS ORDERED: HYDR-3980 PO (06:34)
[2021-12-12] MEDS ORDERED: MAGN296S70 PO (06:34)
[2021-12-12] MEDS ORDERED: MAGN400O6 PO (06:34)
[2021-12-12] MEDS ORDERED: MORPHINE SULFATE 4 MG/1 ML DISP.SYRIN IV ONE (07:00)
[2021-12-12] MEDS ORDERED: ONDANSETRON 4 MG/2 ML VIAL IV ONE (07:00)
[2021-12-12 07:53] LABS: HEMATOCRIT 31.8 % (36.7-47.1); MEAN CORPUSCULAR HEMOGLOBIN 28.2 uug (23.8-33.4); MEAN CORPUSCULAR VOLUME 87.5 fL (73.0-96.2); PLATELET COUNT (AUTO) 286 K/uL (152-348)
[2021-12-12] MEDS ORDERED: ONDANSETRON 4 MG/2 ML VIAL ONE (08:00)
[2021-12-12] MEDS ORDERED: MORPHINE SULFATE 4 MG/1 ML DISP.SYRIN ONE (08:00)
[2021-12-12 08:11] LABS: ALANINE AMINOTRANSFERASE 27 U/L (16-63); ALKALINE PHOSPHATASE 98 U/L (50-136); ASPARTATE AMINOTRANSFERASE 11 U/L (15-37); BILIRUBIN,DIRECT 0.1 mg/dL (0.0-0.2); BILIRUBIN,TOTAL 0.4 mg/dL (0.2-1.0); CARBON DIOXIDE 25 mmol/L (21-32); CHLORIDE 101 mmol/L (98-107); CREATININE 0.6 mg/dL (0.6-1.3); GLUCOSE 80 mg/dL (74-106); POTASSIUM 3.6 mmol/L (3.5-5.1); TOTAL PROTEIN, SERUM 6.4 g/dL (6.4-8.2); UREA NITROGEN, BLOOD 21 mg/dL (7-18)
--- NOTE | 2021-12-12 08:22 | NUR ---
Received pt. in a wheechair. AAOx4. sleeping and with LLE. debug technician at bedside, and at this time pt. refusing to get in bed for procedure to be done.
--- NOTE | 2021-12-12 08:26 | NUR ---
Dr. Stern called regarding radiology report; patient positive for DVT. Will notify
--- NOTE | 2021-12-12 08:44 | NUR ---
0800 Hr.77 sbp of 91/68, 98.0 rr 18.
[2021-12-12] MEDS ORDERED: HYDROCODONE/APAP 10-325 MG TABLET PO PRN (12:30)
[2021-12-12] MEDS ORDERED: MAGNESIUM HYDROXIDE 30 ML LIQUID UDC PO PRN (12:30)
[2021-12-12] MEDS ORDERED: ACETAMINOPHEN 325 MG TABLET PO PRN (12:30)
[2021-12-12] MEDS ORDERED: REMEDY ESSENTIAL ZINC PASTE 113 GM TP PRN (12:30)
[2021-12-12] MEDS ORDERED: HYDROMORPHONE 2 MG/1 ML DISP.SYRIN IV ONE (13:37)
[2021-12-12] MEDS ORDERED: HYDROMORPHONE 2 MG/1 ML DISP.SYRIN ONE (13:37)
[2021-12-12] MEDS: HYDROMORPHONE HCL 2 MG TABLET PO PRN ×4 (13:41→23:53)
--- NOTE | 2021-12-12 14:00 | NUR ---
HR 77,SBP 102/67, rr 18, PT. AAOx4.
[2021-12-12] MEDS ORDERED: DEXAMETHASONE 4 MG TABLET ONE (14:28)
[2021-12-12] MEDS ORDERED: MIDODRINE HCL 5 MG TABLET ONE (14:29)
[2021-12-12] MEDS: DEXAMETHASONE 4 MG TABLET PO SCH ×2 (14:35→22:05)
[2021-12-12] MEDS: MIDODRINE HCL 5 MG TABLET PO SCH ×2 (14:39→22:05)
[2021-12-12] MEDS ORDERED: CEFAZOLIN 1 G VIAL ONE (16:54)
[2021-12-12] MEDS ORDERED: LIDOCAINE-MPF 2% 5 ML VIAL ONE (16:54)
[2021-12-12] MEDS ORDERED: PROPOFOL 200 MG/20 ML BOTTLE ONE (16:54)
--- NOTE | 2021-12-12 17:00 | NUR ---
total urine output of 450
--- NOTE | 2021-12-12 17:21 | NUR ---
A call from Dr. Newton and at this time orders for NPO past midnight received as well as orders to consent pt. for left inferior vena cava filter placement received. As stated by Dr. Newton "procedure might be done by me or Dr. Ahmadi" at 1500 on 12/13/21.
--- NOTE | 2021-12-12 19:07 | NUR ---
Care endorse to incoming rn. Walker
--- NOTE | 2021-12-12 19:32 | NUR ---
Pt. admitted to M/S 317 , under care of Dr. Derek Newman List completed Matt RN aware of patient's arrival.
--- NOTE | 2021-12-12 19:40 | NUR ---
Admitted patient on Med surg floor under the care of Dr Walker with LL DVT, patient has head wound, and has abdominal dressing, patient refused body check, refused body check, noted with soiled dressing on right flank areas, cont to encourage. Patient verbally abusive curses staff, yells and screams, call staff the "devil" and accused staff that were going to hurt him, don't want RN to come near him, has paranoia behavior, cont to reorient.
[2021-12-12 20:00] VITALS: BP 105/62
[2021-12-12] MEDS: TRAZODONE 50 MG TABLET PO SCH (20:44)
[2021-12-12] MEDS: MIRTAZAPINE 15 MG TABLET PO SCH (20:44)
[2021-12-12] MEDS: DOCUSATE SODIUM 100 MG CAPSULE PO SCH (20:44)
[2021-12-12] MEDS: GABAPENTIN 300 MG CAPSULE PO SCH (20:45)
[2021-12-13 04:00] VITALS: BP 96/61
--- NOTE | 2021-12-13 04:41 | NUR ---
Patient asleep no s/s of chest pain, no s/s of sob, patient arousable, no further complain of pain, patient given pain meds twice for pain management, patient allowed staff to do body check and changed his dressing on right flank wound/skin cancer, noted with slight odor with serosangeneous draining noted, noted dressing appears very old, patient has episode of non compliant with care, and or treatment, Patient has multiple episode of paranoia behavior, uncooperative with care, needs lots of encouragement before care can be done, for wound and dietary consults, left lower extremity edematous, and whips with clear to yellow color fluids, kept it elevated. cont to monitor.
[2021-12-13] MEDS: HYDROMORPHONE HCL 2 MG TABLET PO PRN ×2 (05:17→20:34)
[2021-12-13] MEDS: DEXAMETHASONE 4 MG TABLET PO SCH ×3 (06:00→22:03)
[2021-12-13] MEDS: MIDODRINE HCL 5 MG TABLET PO SCH ×3 (06:00→22:03)
[2021-12-13] MEDS: PANTOPRAZOLE SODIUM 40 MG TABLET.DR PO SCH (06:22)
[2021-12-13 06:40] LABS: HEMATOCRIT 27.7 % (36.7-47.1); MEAN CORPUSCULAR HEMOGLOBIN 28.6 uug (23.8-33.4); MEAN CORPUSCULAR VOLUME 86.7 fL (73.0-96.2); PLATELET COUNT (AUTO) 236 K/uL (152-348)
[2021-12-13 06:55] LABS: CARBON DIOXIDE 30 mmol/L (21-32); CHLORIDE 95 mmol/L (98-107); CREATININE 0.6 mg/dL (0.6-1.3); GLUCOSE 92 mg/dL (74-106); MAGNESIUM 1.7 mg/dL (1.8-2.4); PHOSPHOROUS 3.7 mg/dL (2.5-4.9); POTASSIUM 4.2 mmol/L (3.5-5.1); UREA NITROGEN, BLOOD 18 mg/dL (7-18)
[2021-12-13] MEDS: MULTIVIT, IRON, MIN NO. 8, FA TABLET PO SCH (09:00)
[2021-12-13] MEDS ORDERED: MAGNESIUM OXIDE 400 MG TABLET PO ONE (09:15)
--- NOTE | 2021-12-13 10:00 | NUR ---
UPCOMING PROCEDURE. LEFT INFERIOR VENA CAVA FILTER PLACEMENT. CONSENT SIGNED BT THE PT. SURGERY WILL PICKUP PT AT 1500. PT STILL NPO. ORDERED IVF D5NS @ 75CC/HR.
[2021-12-13] MEDS: IV D5/ 0.9% NACL 1,000 ML IV PRN (10:45)
--- NOTE | 2021-12-13 11:30 | NUR ---
WOUND CARE CONSULT: PT PRESENTS WITH MULTIPLE SKIN ISSUES AND WOUNDS INCLUDING RT HIP AND RT LOWER BUTTOCK INTACT DEEP TISSUE INJURIES, FULL THICKNESS ULCER TO SACRUM, RASH TO PERINEUM AND GROIN FOLDS WELL RAISED LESIONS TO SCALP AND RT BACK AREA, ALL PRESENT ON ADMISSION. DR OBREGON NOTIFIED OF SURGICAL CONSULT REQUEST. RECOMMENDATIONS MADE FOR SKIN PROTECTION. DISCUSSED WITH NURSING STAFF. PT IS EXTREMELY THIN AND BONY. DIETARY CONSULT IN PLACE. MD IN AGREEMENT WITH PLAN OF CARE.
[2021-12-13] MEDS ORDERED: HYDROMORPHONE 1 MG/1 ML DISP.SYRIN IV ONE (12:00)
[2021-12-13] MEDS ORDERED: IOPAMIDOL 15 ML VIAL IT ONE (13:39)
[2021-12-13] MEDS ORDERED: HEPARIN/NS 500 ML ONE (13:39)
[2021-12-13] MEDS ORDERED: LIDOCAINE HCL 1% 20 ML VIAL ONE (13:40)
[2021-12-13] MEDS ORDERED: LIDOCAINE 1%-EPI 1:100,000 20 ML VIAL ONE (13:40)
[2021-12-13] MEDS ORDERED: IOHEXOL 300MG/ML 50 ML VIAL ONE (13:52)
[2021-12-13] MEDS ORDERED: FENTANYL CITRATE 100 MCG/2 ML AMPUL ONE (15:32)
[2021-12-13] MEDS ORDERED: HYDROMORPHONE 1 MG/1 ML DISP.SYRIN ONE (16:21)
[2021-12-13] MEDS ORDERED: ONDANSETRON 4 MG/2 ML VIAL ONE (16:29)
[2021-12-13 17:08] VITALS: BP 94/63
[2021-12-13] MEDS: CLOTRIMAZOLE 1% CREAM 30 GM TUBE TOP SCH (17:18)
[2021-12-13 20:00] VITALS: BP 97/60
[2021-12-13] MEDS: DOCUSATE SODIUM 100 MG CAPSULE PO SCH (20:23)
[2021-12-13] MEDS: MIRTAZAPINE 15 MG TABLET PO SCH (20:23)
[2021-12-13] MEDS: TRAZODONE 50 MG TABLET PO SCH (20:23)
[2021-12-13] MEDS: GABAPENTIN 300 MG CAPSULE PO SCH (20:25)
[2021-12-13] MEDS: ONDANSETRON 4 MG/2 ML VIAL IV PRN (20:34)
[2021-12-14] MEDS: HYDROMORPHONE HCL 2 MG TABLET PO PRN ×2 (00:49→12:46)
[2021-12-14] MEDS: IV D5/ 0.9% NACL 1,000 ML IV PRN ×2 (03:38→10:05)
[2021-12-14] MEDS: ONDANSETRON 4 MG/2 ML VIAL IV PRN ×4 (03:41→21:44)
[2021-12-14 04:00] VITALS: BP 113/74
[2021-12-14] MEDS: DEXAMETHASONE 4 MG TABLET PO SCH ×3 (05:05→20:51)
[2021-12-14] MEDS: MIDODRINE HCL 5 MG TABLET PO SCH ×3 (05:07→22:02)
[2021-12-14] MEDS: PANTOPRAZOLE SODIUM 40 MG TABLET.DR PO SCH (06:06)
[2021-12-14 06:32] LABS: CARBON DIOXIDE 28 mmol/L (21-32); CHLORIDE 98 mmol/L (98-107); CREATININE 0.6 mg/dL (0.6-1.3); GLUCOSE 159 mg/dL (74-106); MAGNESIUM 1.7 mg/dL (1.8-2.4); POTASSIUM 3.4 mmol/L (3.5-5.1); UREA NITROGEN, BLOOD 18 mg/dL (7-18)
[2021-12-14 06:42] LABS: HEMATOCRIT 29.1 % (36.7-47.1); MEAN CORPUSCULAR HEMOGLOBIN 28.7 uug (23.8-33.4); MEAN CORPUSCULAR VOLUME 86.9 fL (73.0-96.2); PLATELET COUNT (AUTO) 262 K/uL (152-348)
[2021-12-14] MEDS: CLOTRIMAZOLE 1% CREAM 30 GM TUBE TOP SCH ×2 (08:17→17:41)
[2021-12-14] MEDS: MULTIVIT, IRON, MIN NO. 8, FA TABLET PO SCH (08:17)
[2021-12-14] MEDS ORDERED: POTASSIUM CHLORIDE 20 MEQ TAB.PRT.SR PO ONE (10:00)
[2021-12-14] MEDS: MAGNESIUM SULFATE/D5W 100 ML IV SCH ×2 (10:05→11:00)
[2021-12-14 12:00] VITALS: BP 106/76
[2021-12-14] MEDS ORDERED: VANCOMYCIN IV 1,000 MG in IV DEXTROSE 5% 250 ML IV ONE (12:00)
[2021-12-14 15:51] VITALS: BP 119/76
--- NOTE | 2021-12-14 19:22 | NUR ---
SHIFT NOTE- PT NAUSEOUS AND VOMITING. DARK GREEN EMESIS NOTED. GAVE ZOFRAN PRN. MD NOTIFIED. PT WAS SEEN BY [facility] WOUND CARE NURSE. TOOK SAMPLE OF SKIN FOR BIOPSY. PT COOPERATIVE AND ALERT. LEFT LEG +3 PITTING EDEMA NOTED. NOTIFIED; NO NEW ORDER. PT ATE A LITTLE BIT OF LUNCH AND DINNER. HE VERBALIZED THAT HE NOT IN THE MOOD TO EAT MUCH.
[2021-12-14 20:00] VITALS: BP 117/76
[2021-12-14] MEDS: MIRTAZAPINE 15 MG TABLET PO SCH (20:50)
[2021-12-14] MEDS: GABAPENTIN 300 MG CAPSULE PO SCH (20:50)
[2021-12-14] MEDS: DOCUSATE SODIUM 100 MG CAPSULE PO SCH (20:50)
[2021-12-14] MEDS: TRAZODONE 50 MG TABLET PO SCH (20:50)
[2021-12-14] MEDS: VANCOMYCIN IV 750 MG in IV DEXTROSE 5% 250 ML IV SCH (20:52)
[2021-12-14] MEDS: SODIUM HYPOCHLORITE 0.125% (QUARTER STRENGTH) 473 ML BOTTLE TP SCH (21:50)
[2021-12-15] MEDS: HYDROMORPHONE HCL 2 MG TABLET PO PRN (00:05)
[2021-12-15 04:00] VITALS: BP 118/72
[2021-12-15] MEDS: VANCOMYCIN IV 750 MG in IV DEXTROSE 5% 250 ML IV SCH (05:01)
[2021-12-15] MEDS: IV D5/ 0.9% NACL 1,000 ML IV PRN (05:20)
[2021-12-15 06:25] LABS: HEMATOCRIT 27.1 % (36.7-47.1); MEAN CORPUSCULAR HEMOGLOBIN 28.6 uug (23.8-33.4); MEAN CORPUSCULAR VOLUME 86.8 fL (73.0-96.2); PLATELET COUNT (AUTO) 240 K/uL (152-348)
[2021-12-15 06:29] LABS: CARBON DIOXIDE 34 mmol/L (21-32); CHLORIDE 95 mmol/L (98-107); CREATININE 0.6 mg/dL (0.6-1.3); GLUCOSE 146 mg/dL (74-106); MAGNESIUM 2.2 mg/dL (1.8-2.4); POTASSIUM 3.3 mmol/L (3.5-5.1); UREA NITROGEN, BLOOD 21 mg/dL (7-18)
[2021-12-15] MEDS: PANTOPRAZOLE SODIUM 40 MG TABLET.DR PO SCH (07:03)
[2021-12-15] MEDS: MIDODRINE HCL 5 MG TABLET PO SCH (07:04)
[2021-12-15] MEDS: DEXAMETHASONE 4 MG TABLET PO SCH (07:05)
--- NOTE | 2021-12-15 08:07 | NUR ---
SHIFT NOTES; RECEIVED REPORT FROM AM NURSE PT HAD EMESIS NO SIGNS OF EARLIER DURING THE SHIFT BUT LATER PT HAD EMESIS AND WAS GIVEN 4MG OF ZOFRAN NO SIGNS OF DISTRESS NOTED. PT C/O PAIN DURING SHIFT GAVE 2MG OF DILAUDID PO TOLERATED WELL NO SIGNS OF RESPIRATORY DISTRESS NOTED. CHECKED ON PT AND GAVE HIM WAS SLEEPING PT WAS ABLE TO TAKE AM MEDICATION WITHOUT WITHOUT EMESIS. WILL CONTINUE TO MONITOR.
[2021-12-15] MEDS: SODIUM HYPOCHLORITE 0.125% (QUARTER STRENGTH) 473 ML BOTTLE TP SCH (09:00)
[2021-12-15] MEDS: CLOTRIMAZOLE 1% CREAM 30 GM TUBE TOP SCH (09:05)
[2021-12-15] MEDS: MULTIVIT, IRON, MIN NO. 8, FA TABLET PO SCH (09:05)
[2021-12-15] MEDS ORDERED: POTASSIUM CHLORIDE 20 MEQ TAB.PRT.SR PO ONE (09:15)
--- NOTE | 2021-12-15 10:28 | NUR ---
Patient refused some of medications and dressing change on the side of his head. He asked to leave him alone and that he wanted to be in peace and quiet, unbothered. Patient didn't have breakfast, refused it and said he wanted to sleep with the door closed. Will continue to check on him frequently.
[2021-12-15 11:04] VITALS: BP 117/76
[2021-12-15] MEDS ORDERED: ARGININE/GLUTAMINE/CALCIUM BMB 1 EACH POWD.PACK PO SCH (12:45)
[2021-12-15] MEDS ORDERED: GLUCERNA SHAKE 237 ML CAN PO SCH (12:45)
[2021-12-15] MEDS ORDERED: PROTEIN SUPPLEMENT (PROSTAT) 30 ML LIQUID PO SCH (12:45)
--- NOTE | 2021-12-15 13:10 | NUR ---
Patient is getting discharged, he verbalized understanding that he is going to [facility] and rehab. He is getting picked up by [facility] ambulance.
== END 2021-12-15 13:50 | DRG 300 ==
LOC: ER 04:58 → TRANSITION 14:01 → MEDSURG3 19:11
PROC: 06H03DZ Insertion of Intraluminal Device into Inferior Vena Cava, Percutaneous Approach (ICD-10-PCS; principal; 2021-12-13)
PROC: 0J9C3ZX Drainage of Pelvic Region Subcutaneous Tissue and Fascia, Percutaneous Approach, Diagnostic (ICD-10-PCS; 2021-12-14)
PROC: 0J903ZX Drainage of Scalp Subcutaneous Tissue and Fascia, Percutaneous Approach, Diagnostic (ICD-10-PCS; 2021-12-14)
DX: I82.432 Acute embolism and thrombosis of left popliteal vein (principal); C77.9 Secondary and unspecified malignant neoplasm of lymph node, unspecified; C79.31 Secondary malignant neoplasm of brain; D68.59 Other primary thrombophilia; E87.1 Hypo-osmolality and hyponatremia; C78.7 Secondary malignant neoplasm of liver and intrahepatic bile duct; Z68.1 Body mass index [BMI] 19.9 or less, adult; I82.442 Acute embolism and thrombosis of left tibial vein; Z89.611 Acquired absence of right leg above knee; D64.9 Anemia, unspecified; D72.829 Elevated white blood cell count, unspecified; Z20.822 Contact with and (suspected) exposure to COVID-19; Z66 Do not resuscitate; Z79.899 Other long term (current) drug therapy; E83.42 Hypomagnesemia; E88.09 Other disorders of plasma-protein metabolism, not elsewhere classified; G89.29 Other chronic pain; Z79.891 Long term (current) use of opiate analgesic; G40.909 Epilepsy, unspecified, not intractable, without status epilepticus; F32.A Depression, unspecified; L89.156 Pressure-induced deep tissue damage of sacral region; L89.216 Pressure-induced deep tissue damage of right hip; L89.316 Pressure-induced deep tissue damage of right buttock; F32.9 Major depressive disorder, single episode, unspecified; E78.5 Hyperlipidemia, unspecified; C43.9 Malignant melanoma of skin, unspecified; K63.9 Disease of intestine, unspecified
CPT/HCPCS: 36415; 71045; 74018; 83605; 83735; 84100; 85025; 85730; 87040; 97161; A4663; A6209; A6213; C1769; C1880; G0378; J0690; J1170; J1644; J2270; J2405; J3010; J3370; J3475; J3490; J7042; J7050; J8540; Q9967